=== PATIENT | female | born 1990 | race Caucasian/White ===

== ENCOUNTER 2024-02-18 15:55 | Emergency (ER) | payer OTHER ==
[2024-02-18 16:13] VITALS: O2SAT 97
--- NOTE | 2024-02-18 16:31 | ED Physician Documentation ---
History of Present Illness - Stated complaint Stated Complaint: HEAD PX/BLURRY VISION - Chief complaint Chief Complaint: Neuro - Additonal information Additional information: 33-year-old female with history of prolonged QT syndrome presents emergency department for concerns of sudden onset left frontal head pressure with right eye vision changes. She has no history of migraines or other neurological deficits she says that she has never experienced this before. She does say that she supposed be taking labetalol for her prolonged QT but has not taken any since she had her baby because she had a couple episodes of hypotension in the [facility] and was worried about possibly passing out while she was taking care of her baby. No chest pain no shortness of breath no recent illnesses or fevers or chills. PD PAST MEDICAL HISTORY - Past Medical History Past Medical History: Yes Cardiovascular: Other - Past Surgical History Past Surgical History: No - Allergies Allergies/Adverse Reactions: Allergies Allergy/AdvReac Type Severity Reaction Status Date / Time Penicillins Allergy Unknown Verified 02/18/24 16:05 - Social History Does the pt smoke?: No Smoking Status: Never smoker Does the pt drink ETOH?: No Does the pt have substance abuse?: No - Immunizations Immunizations are current?: Yes PD ED PE NORMAL - Vitals Vital signs reviewed: Yes - General General: Alert and oriented X 3, No acute distress, Well developed/nourished - HEENT HEENT: Atraumatic, PERRL, EOMI - Cardiac Cardiac: RRR, No murmur - Respiratory Respiratory: No respiratory distress, Clear bilaterally - Derm Derm: Normal color, Warm and dry, No rash - Extremities Extremities: No edema, No calf tenderness / cord - Neuro Neuro: Alert and oriented X 3, 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 No: Weakness, Nystagmus Results - Vitals Vitals: Vital Signs - 24 hr 02/18/24 02/18/24 02/18/24 16:06 16:30 18:48 Temperature 36.6 C 36.2 C L Heart Rate 66 65 53 L Respiratory 14 17 17 Rate Blood Pressure 111/68 94/69 103/80 O2 Saturation 97 98 97 Oxygen O2 Source Room air - Labs Labs: Laboratory Tests 02/18/24 02/18/24 02/18/24 16:50 16:50 16:50 WBC 8.6 RBC 4.71 Hgb 13.2 Hct 41.5 MCV 88.1 MCH 28.0 MCHC 31.8 L RDW 13.1 Plt Count 280 MPV 10.1 Neut # (Auto) 5.6 Lymph # (Auto) 2.1 [place] # (Auto) 0.5 Eos # (Auto) 0.3 Baso # (Auto) 0.1 Absolute Nucleated RBC 0.00 Nucleated RBC % 0.0 Sodium 139 Potassium 3.7 Chloride 106 Carbon Dioxide 29 Anion Gap 4.0 L BUN 13 Creatinine 0.7 Estimated GFR (MDRD) 97 Glucose 105 H Calcium 9.8 Magnesium 1.8 Total Bilirubin 0.5 AST 11 ALT 11 Alkaline Phosphatase 79 Total Protein 7.0 Albumin 4.3 Globulin 2.7 Albumin/Globulin Ratio 1.6 Lipase 16 Urine Color YELLOW Urine Clarity CLEAR Urine pH 6.0 Ur Specific [place] <=1.005 Urine Protein NEGATIVE Urine Glucose (UA) NEGATIVE Urine Ketones NEGATIVE Urine Occult Blood MODERATE H Urine Nitrite NEGATIVE Urine Bilirubin NEGATIVE Urine Urobilinogen 0.2 (NORMAL) Ur Leukocyte Esterase NEGATIVE Urine RBC 6-10 H Urine WBC 0-3 Ur Squamous Epith Cells FEW Squamous Urine Bacteria Few Ur Microscopic Review INDICATED Urine Culture Comments NOT INDICATED Urine HCG, Qual NEGATIVE Nasal Adenovirus (PCR) Nasal B. parapertussis DNA (PCR) Nasal Coronavir 229E PCR Nasal Coronavir HKU1 PCR Nasal Coronavir NL63 PCR Nasal Coronavir OC43 PCR Nasal Enterovir/Rhinovir PCR Nasal Influenza B PCR Nasal Influenza A PCR Nasal Parainfluen 1 PCR Nasal Parainfluen 2 PCR Nasal Parainfluen 3 PCR Nasal Parainfluen 4 PCR Nasal RSV (PCR) Nasal B.pertussis DNA PCR Nasal C.pneumoniae (PCR) Jb Human Metapneumo PCR Nasal M.pneumoniae (PCR) Nasal SARS-CoV-2 (PCR) 02/18/24 16:50 WBC RBC Hgb Hct MCV MCH MCHC RDW Plt Count MPV Neut # (Auto) Lymph # (Auto) [place] # (Auto) Eos # (Auto) Baso # (Auto) Absolute Nucleated RBC Nucleated RBC % Sodium Potassium Chloride Carbon Dioxide Anion Gap BUN Creatinine Estimated GFR (MDRD) Glucose Calcium Magnesium Total Bilirubin AST ALT Alkaline Phosphatase Total Protein Albumin Globulin Albumin/Globulin Ratio Lipase Urine Color Urine Clarity Urine pH Ur Specific [place] Urine Protein Urine Glucose (UA) Urine Ketones Urine Occult Blood Urine Nitrite Urine Bilirubin Urine Urobilinogen Ur Leukocyte Esterase Urine RBC Urine WBC Ur Squamous Epith Cells Urine Bacteria Ur Microscopic Review Urine Culture Comments Urine HCG, Qual Nasal Adenovirus (PCR) NOT DETECTED Nasal B. parapertussis DNA (PCR) NOT DETECTED Nasal Coronavir 229E PCR NOT DETECTED Nasal Coronavir HKU1 PCR NOT DETECTED Nasal Coronavir NL63 PCR NOT DETECTED Nasal Coronavir OC43 PCR NOT DETECTED Nasal Enterovir/Rhinovir PCR NOT DETECTED Nasal Influenza B PCR NOT DETECTED Nasal Influenza A PCR NOT DETECTED Nasal Parainfluen 1 PCR NOT DETECTED Nasal Parainfluen 2 PCR NOT DETECTED Nasal Parainfluen 3 PCR NOT DETECTED Nasal Parainfluen 4 PCR NOT DETECTED Nasal RSV (PCR) NOT DETECTED Nasal B.pertussis DNA PCR NOT DETECTED Nasal C.pneumoniae (PCR) NOT DETECTED Jb Human Metapneumo PCR NOT DETECTED Nasal M.pneumoniae (PCR) NOT DETECTED Nasal SARS-CoV-2 (PCR) NOT DETECTED - Rads (name of study) Head CT without Relevant Findings:: Final report received, EMP independent interpretation of test, Other (Arachnoid cyst involving the posterior aspect of the posterior fossa) PD Medical Decision Making - ED course ED course: 33-year-old female presents emergency department for atypical headache sudden onset left forehead pressure with right vision changes. She received Tylenol here in the emergency department and did report that this completely alleviated her symptoms with very mild right peripheral vision haziness. Head CT was complete for further evaluation and there is no intracranial hemorrhages or acute findings at this point in time. Incidentally it was found that patient did have an arachnoid cyst involving the posterior aspect of the posterior fossa which is regarded as benign. Given that patient has fully improved from her migraine symptoms I do not believe there is any further workup indicated at this point in time. Her labs are found to be unremarkable she is told to follow-up with her primary care provider and told if she has any returning symptoms or if any symptoms get worse to report back to the emergency department immediately for further evaluation. All questions have been answered I do believe at this point in time patient is safe for discharge Departure - Departure Disposition: 01 Home, Self Care Clinical Impression: Migraine Instructions: ED Headache Migraine Comments: Thank you for trusting us with your care. I do believe the symptoms you are experiencing are due to a migraine. We have completed labs and we have not found any acute abnormalities or findings on labs. We have also checked a respiratory panel which was also negative for all viruses. For more investigation we completed a head CT and this revealed incidentally an arachnoid cyst involving the posterior aspect of the posterior fossa. This is benign and there is no intervention that is warranted at this time I have copied and pasted the CT radiology read below for your reading. We have given you some Tylenol here in the emergency department to help with your symptoms and this has almost entirely alleviated your symptoms at this point in time I do not believe any further workup is warranted but as we discussed please have a very low threshold to come back to the emergency department if any changes happen if any worsening symptoms happen or if you are noticing any neurological deficits. PT NAME: IRAM CHAVEZ MR#: [id number] REG ER/ED AGE: 33 CI DT/TM: 02/18/2408/31/1634 PCP: : 1990 ATT: SEX: F ORD: Toni Knowles [employer] EXAM: CT/HEADWO ([id number]) PROCEDURE: Head WO INDICATIONS: left head pressure, right blurred vision TECHNIQUE: Noncontrast 4.5 mm thick angled axial sections acquired from the foramen magnum to the vertex. For radiation dose reduction, the following was used: automated exposure control, adjustment of mA and/or kV according to patient size. COMPARISON: None. FINDINGS: Image quality: Excellent. CSF spaces: Basal cisterns are patent. An arachnoid cyst can be seen along the posterior aspect of the posterior fossa. Ventricles are normal in size and shape. Brain: No midline shift. No intracranial masses or hemorrhage. [place]-white matter interface is normal. Skull and face: Calvarium and visualized facial bones are intact, without suspicious lesions. Sinuses: Visualized sinuses and mastoids are clear. IMPRESSION: No imaging explanation is found for the patient's presenting symptoms. There is an arachnoid cyst involving the posterior aspect of the posterior fossa, which is regarded to be a benign, incidental finding. Forms: PCP List Discharge Date/Time: 02/18/24 18:48
[2024-02-18 16:58] LABS: BASOPHILS # (AUTO) 0.1 10^3/uL (0.0-0.1); BASOPHILS % (AUTO) 0.8 %; EOSINOPHILS # (AUTO) 0.3 10^3/uL (0.0-0.7); EOSINOPHILS % (AUTO) 3.5 %; HCT - HEMATOCRIT 41.5 % (37.0-47.0); HGB - HEMOGLOBIN 13.2 g/dL (12.0-16.0); LYMPHOCYTES # (AUTO) 2.1 10^3/uL (1.5-3.5); LYMPHOCYTES % (AUTO) 24.7 %; MEAN CORPUSCULAR HGB CONC 31.8 g/dL (32.0-36.0); MEAN CORPUSCULAR VOLUME 88.1 fL (81.0-99.0); MEAN PLATELET VOLUME 10.1 fL (7.9-10.8); MONOCYTES # (AUTO) 0.5 10^3/uL (0.0-1.0); MONOCYTES % (AUTO) 6.2 %; NEUTROPHILS # (AUTO) 5.6 10^3/uL (1.5-6.6); NEUTROPHILS % (AUTO) 64.6 %; PLT - PLATELET COUNT 280 10^3/uL (130-450); RED BLOOD COUNT 4.71 10^6/uL (4.20-5.40); RED CELL DISTRIBUTION WIDTH 13.1 % (12.0-15.0); WHITE BLOOD COUNT 8.6 x10^3/uL (4.8-10.8)
[2024-02-18 16:59] LABS: BILIRUBIN,URINE NEGATIVE (NEGATIVE); GLUCOSE, URINE (UA) NEGATIVE (NEGATIVE); KETONES,URINE (UA) NEGATIVE (NEGATIVE); LEUKOCYTE ESTERASE, URINE NEGATIVE (NEGATIVE); NITRITE,URINE NEGATIVE (NEGATIVE); OCCULT BLOOD,URINE MODERATE (NEGATIVE); PROTEIN,URINE NEGATIVE (NEGATIVE); UROBILINOGEN,URINE 0.2 (NORMAL) E.U./dL (NORMAL)
[2024-02-18 17:03] LABS: CLARITY,URINE CLEAR (CLEAR); HCG UR QUAL NEGATIVE
--- NOTE | 2024-02-18 17:09 | CT Report ---
PROCEDURE: Head WO INDICATIONS: left head pressure, right blurred vision TECHNIQUE: Noncontrast 4.5 mm thick angled axial sections acquired from the foramen magnum to the vertex. For r adiation dose reduction, the following was used: automated exposure control, adjustment of mA and/or kV according to patient size. COMPARISON: None. FINDINGS: Image quality: Excellent. CSF spaces: Basal cisterns are patent. An arachnoid cyst can be seen along the posterior aspect of t he posterior fossa. Ventricles are normal in size and shape. Brain: No midline shift. No intracranial masses or hemorrhage. [place]-white matter interface is norm al. Skull and face: Calvarium and visualized facial bones are intact, without suspicious lesions. Sinuses: Visualized sinuses and mastoids are clear. IMPRESSION: No imaging explanation is found for the patient's presenting symptoms. There is an arachnoid cyst involving the posterior aspect of the posterior fossa, which is regarded t o be a benign, incidental finding. Reviewed by: Kentrell Ching MD on 02/18/2024 4:08 PM [place] Approved by: Kentrell Ching MD on 02/18/2024 4:08 PM [place] Station ID: [id number]
[2024-02-18 17:10] LABS: MAGNESIUM 1.8 mg/dL (1.7-2.3)
[2024-02-18 17:13] LABS: WBC,URINE 0-3 /HPF (0-5)
[2024-02-18] MEDS: ACETAMINOPHEN 500 MG TABLET PO STA (17:13)
[2024-02-18 17:14] LABS: BACTERIA,URINE Few /HPF (None Seen); SQUAMOUS EPITHELIAL CELL,UR FEW Squamous (<= Few)
[2024-02-18 17:16] LABS: ALBUMIN 4.3 g/dL (3.2-5.5); ALBUMIN/GLOBULIN RATIO 1.6 (1.0-2.2); BILIRUBIN,TOTAL 0.5 mg/dL (0.2-1.0); CALCIUM 9.8 mg/dL (8.5-10.3); CREATININE 0.7 mg/dL (0.6-1.3); POTASSIUM 3.7 mmol/L (3.5-4.5)
[2024-02-18 18:00] LABS: CORONAVIRUS 229E-RESP PCR NOT DETECTED; CORONAVIRUS HKU1-RESP PCR NOT DETECTED; CORONAVIRUS NL63-RESP PCR NOT DETECTED; CORONAVIRUS OC43-RESP PCR NOT DETECTED; HUMAN METAPNEUMOVIRUS NOT DETECTED; INFLUENZA A- RESP PCR PANEL NOT DETECTED; RHINOVIRUS/ENTEROVIRUS NOT DETECTED; SARS-CoV-2 -RESP PCR PANEL NOT DETECTED
[2024-02-18 18:01] LABS: B. PARAPERTUSSIS- RESP PCR PAN NOT DETECTED; B. PERTUSSIS- RESP PCR PANEL NOT DETECTED; C. PNEUMONIAE- RESP PCR PANEL NOT DETECTED; INFLUENZA B - RESP PCR PANEL NOT DETECTED; M. PNEUMONIAE- RESP PCR PANEL NOT DETECTED; PARAINFLUENZA VIRUS 1 NOT DETECTED; PARAINFLUENZA VIRUS 2 NOT DETECTED; PARAINFLUENZA VIRUS 3 NOT DETECTED; PARAINFLUENZA VIRUS 4 NOT DETECTED; RSV- RESP PCR PANEL NOT DETECTED
[2024-02-18 18:56] VITALS: BP 103/80
== END 2024-02-18 18:48 | disposition home or self-care (01) ==
LOC: ED 15:55
DX: G43.909 Migraine, unspecified, not intractable, without status migrainosus (principal); G93.0 Cerebral cysts; R94.31 Abnormal electrocardiogram [ECG] [EKG]
CPT/HCPCS: 36415; 70450; 80053; 81001; 81025; 83690; 83735; 85025; 87633; 93005; 99283; 99284; A9270; 81003; 87086